=== PATIENT | male | born 1955 | race Two or more races ===

== ENCOUNTER 2019-08-23 11:16 | Inpatient (IN) | payer MEDICARE, MEDICAID ==
[~2019-08-23] VITALS: Ht 162.6 cm; Wt 78.2 kg
[2019-08-23] MEDS ORDERED: cloNIDine HCL 0.1 MG TAB PO ONE (12:15)
[2019-08-23 12:34] LABS: Basophils # (auto) 0.1 uL; Basophils % (auto) 1.1 % (0.0-2.0); Eosinophils # (auto) 0.5 uL; Hematocrit 43.7 % (41.0-53.0); Hemoglobin 14.8 g/dL (13.5-17.5); Lymphocytes # (auto) 2.9 uL; Lymphocytes % (auto) 31.3 % (10.0-50.0); Mean Corpuscular Hemoglobin 29.5 pg (28.0-32.0); Mean Corpuscular Hgb Conc. 33.9 g/dL (32.0-36.0); Monocytes # (auto) 0.6 uL; Monocytes % (auto) 6.3 % (0.0-12.0); Neutrophils # (auto) 5.1 uL; Neutrophils % (auto) 56.3 % (37.0-80.0); Platelet Count (auto) 368 10^3/uL (140-450); Red Blood Cells 5.02 10^6/uL (4.5-5.90); Red Cell Distribution Width 15.8 % (11.8-14.3); White Blood Cell 9.1 10^3/uL (4.4-10.8)
[2019-08-23 12:48] LABS: INR 0.96 (0.9-1.15); Partial Thromboplastin Time 27.2 sec (23.64-32.05)
[2019-08-23 12:51] LABS: Albumin 3.8 g/dL (3.4-5.0); Anion Gap 5 (5-15); Blood Urea Nitrogen 26 mg/dL (7-18); Carbon Dioxide 27 mmol/L (21-32); Chloride 108 mmol/L (98-107); Glucose 90 mg/dL (74-106); Potassium 4.1 mmol/L (3.5-5.1); Sodium 140 mmol/L (136-145)
[2019-08-23 12:56] LABS: Alanine Aminotransferase 26 U/L (16-61); Alkaline Phosphatase 78 U/L (45-117); Aspartate Aminotransferase 24 U/L (15-37); BUN/Creatinine Ratio 16.7; Bilirubin, Total 0.4 mg/dL (0.2-1.0); GFR African American 58 mL/min; GFR Non-African American 48 mL/min; Total Protein 8.1 g/dL (6.4-8.2)
[2019-08-23] MEDS ORDERED: DILTIAZEM HCL 25 MG/5 ML VIAL IV ONE (13:45)
[2019-08-23] MEDS ORDERED: NITROGLYCERIN 0.4 MG SL TAB SL PRN (15:00)
[2019-08-23] MEDS ORDERED: LACTULOSE 20Gm/30ML SOLN PO PRN (15:00)
[2019-08-23] MEDS ORDERED: PROMETHAZINE HCL 25 MG/ML 1ML IV PRN (15:00)
[2019-08-23] MEDS ORDERED: TEMAZEPAM 15 MG CAP PO PRN (15:00)
[2019-08-23] MEDS ORDERED: MORPHINE SULF INJ 2 MG/ML SYRINGE 1ML IV PRN (15:00)
[2019-08-23] MEDS ORDERED: hydrALAZINE HCL 20 MG/ML VL ONE (15:27)
--- NOTE | 2019-08-23 15:55 | NUR ---
Telemetry admit from ER ADILENE LINDER admitted to Telemetry unit after SBAR received. Patient oriented to KEVIN LANDAVERDE RN primary RN, unit, room, bed, and unit policies regarding patient care and visiting hours. Patient now on continuous telemetry monitoring, tele box #[id number]. Patient weighed by bedscale and encouraged to call if they need something. All questions and concerns addressed, patient verbalized understanding.
[2019-08-23 16:30] VITALS: BP 141/91
[2019-08-23] MEDS: traMADol HCL 50 MG TAB PO PRN (17:13)
--- NOTE | 2019-08-23 19:20 | NUR ---
Opening Shift Note Assumed care of patient, awake and alert. No S/S of distress/SOB or pain. Safety measures in place bed in lowest position, side rails x2 up, and call light within reach. Instructed on POC and to call for assist PRN, will continue to monitor for changes Q1hr and PRN.
--- NOTE | 2019-08-23 19:33 | NUR ---
Closing Shift Note Patient resting in bed, still complaining of pain. Report given. Will endorse care to the shift production associate RN.
[2019-08-23 20:30] LABS: Urine Bacteria NONE SEEN /hpf (None Seen); Urine Blood TRACE /uL (Negative); Urine Mucus FEW (None Seen); Urine Specific Gravity 1.011 (1.001-1.035); Urine WBC 6 /hpf (0 - 3)
[2019-08-23 20:48] LABS: Alcohol, Urine < 3.0 mg/dL (0-5); Amphetamine Screen, Urine POSITIVE (NEGATIVE); Barbiturate Scree,Urine NEGATIVE (NEGATIVE); Benzodiazephine Screen, Urine NEGATIVE (NEGATIVE); Cannabinoid Screen, Urine NEGATIVE (NEGATIVE); Cocaine Screen, Urine NEGATIVE (NEGATIVE); Opiate Scree,Urine NEGATIVE (NEGATIVE); Phencyclidine Screen, Urine NEGATIVE (NEGATIVE)
[2019-08-23] MEDS: ACETAMINOPHEN 500 MG TAB PO PRN (20:50)
[2019-08-23 22:00] VITALS: BP 163/97
[2019-08-23] MEDS: ATORVASTATIN 20 MG TAB PO SCH (22:25)
[2019-08-23] MEDS: LABETALOL HCL 5 MG/ML ML 20ML VIAL IV PRN (22:25)
[2019-08-24] MEDS: traMADol HCL 50 MG TAB PO PRN (04:39)
[2019-08-24 04:53] VITALS: BP 146/76
--- NOTE | 2019-08-24 07:00 | NUR ---
opening note patient in bed, comfortable, c/o headache, unlabored, even breathing. instructed patient to ask for assistance as needed. call light with in reach, bed in lowest position. poc explained to patient. patient verbalized understanding.
[2019-08-24 09:12] VITALS: BP 150/85
--- NOTE | 2019-08-24 10:00 | NUR ---
round PATIENT COMFORTABLE, FAMILY AT BED SIDE. MEDICATIONS GIVEN. TYLENOL GIVEN FOR HEADACHE
[2019-08-24] MEDS: ENOXAPARIN SOD 40 MG/0.4 ML SYRINGE SC SCH ×2 (10:27→10:38)
[2019-08-24] MEDS: PANTOPRAZOLE 40 MG TAB PO SCH ×2 (10:28→10:37)
[2019-08-24] MEDS: ASPirin 81 mg TAB PO SCH (10:37)
[2019-08-24] MEDS: ACETAMINOPHEN 500 MG TAB PO PRN ×2 (10:37→20:10)
[2019-08-24 12:59] VITALS: BP 160/84
--- NOTE | 2019-08-24 13:00 | NUR ---
BLOOD PRESSION BLOOD PRESSURE RECHECKED BLOOD PRESSURE, B/P 156/63, PATIENT IN BED, DENIES HEADACHE. PRN MEDICATION NOT GIVEN B/P<160SBP
--- NOTE | 2019-08-24 15:00 | NUR ---
DR JOSÉ MIGUEL VALDEZ AT BEDSIDE, EXPLAINED TO PATIENT AND FAMILY THE PLAN OF CARE. PT WILL BE DISCHARGED HOME. MD SENT PRESCRIPTIONS TO PHARMACY ELECTRONICALLY. PHARMACY VERIFIED WITH FAMILY.
[2019-08-24] MEDS ORDERED: PANT40T PO (15:36)
[2019-08-24] MEDS ORDERED: ACET500T42 PO (15:36)
[2019-08-24] MEDS ORDERED: ATOR20TA50 PO (15:36)
[2019-08-24] MEDS ORDERED: LACT10SO3 PO (15:36)
[2019-08-24] MEDS ORDERED: ASPI81CH43 PO (15:36)
[2019-08-24] MEDS ORDERED: NIFE60TA59 PO (15:36)
[2019-08-24] MEDS ORDERED: LEVE500T22 PO (15:36)
--- NOTE | 2019-08-24 16:20 | NUR ---
RE: elevated BP Notified Dr. Morgan of patient's elevated BP of 189/89 mmHG, HR SR 70 bpm. MD verbalized understanding. Orders received and read back to verify. Patient to be reassessed 2 hours after administration of medications.
[2019-08-24] MEDS ORDERED: NIFEdipine ER 30 MG TAB PO ONE (16:30)
[2019-08-24] MEDS ORDERED: cloNIDine HCL 0.1 MG TAB PO ONE (16:30)
[2019-08-24 17:00] VITALS: BP 189/89
--- NOTE | 2019-08-24 17:10 | NUR ---
PRN MEDICATION FOR B/P PATIENT WAS HELD FROM DISCHARGE D/T BLOOD PRESSURE OF 189/89, PRN MEDICATION PROCARDIA AND CLONIDINE GIVEN PER DR'S ORDER. WILL REASSESS IN TWO HOURS AND IF SBP <160 DBP <100, THEN PATIENT CAN BE SEND HOME SAFELY. PATIENT AND FAMILY UNDERSTAND POC AND ARE AT BED SIDE.
[2019-08-24] MEDS: LABETALOL HCL 5 MG/ML ML 20ML VIAL IV PRN (20:10)
--- NOTE | 2019-08-24 20:16 | NUR ---
PATIENT COMPLAINING OF HEADACHE. BP IS 166/97.
[2019-08-24] MEDS ORDERED: hydrALAZINE HCL 25 MG TAB PO ONE (20:45)
[2019-08-24 22:00] VITALS: BP 119/68
[2019-08-24] MEDS: ATORVASTATIN 20 MG TAB PO SCH (22:13)
[2019-08-25] MEDS: ACETAMINOPHEN 500 MG TAB PO PRN (03:13)
[2019-08-25 05:34] VITALS: BP 124/72
--- NOTE | 2019-08-25 07:30 | NUR ---
Opening Shift Note RECEIVED REPORT FROM NOC RN. Assumed care of patient, awake and alert. No S/S of distress/SOB or pain. BED IN LOWEST, LOCKED POSITION WITH SIDERAILS UP x2 AND CALL LIGHT WITHIN REACH. Instructed on POC and to call for assist PRN, will continue to monitor for changes Q1hr and PRN.
[2019-08-25 08:51] VITALS: BP 122/71
[2019-08-25] MEDS: ASPirin 81 mg TAB PO SCH (09:42)
[2019-08-25 11:34] VITALS: BP 122/71
[2019-08-25 13:03] VITALS: BP 143/81
== END 2019-08-25 13:04 | disposition home or self-care (01) | DRG 305 ==
LOC: ER 11:16 → TELE 11:17 → TELE-WESTW 15:55
PROVIDERS: ADMIT Internal Medicine; ATTEND Internal Medicine
DX: I16.0 Hypertensive urgency (principal); N17.9 Acute kidney failure, unspecified; G45.9 Transient cerebral ischemic attack, unspecified; I12.9 Hypertensive chronic kidney disease with stage 1 through stage 4 chronic kidney disease, or unspecified chronic kidney disease; F17.210 Nicotine dependence, cigarettes, uncomplicated; E78.5 Hyperlipidemia, unspecified; F15.10 Other stimulant abuse, uncomplicated; H93.12 Tinnitus, left ear; F12.10 Cannabis abuse, uncomplicated; N18.9 Chronic kidney disease, unspecified; E66.3 Overweight; Z82.49 Family history of ischemic heart disease and other diseases of the circulatory system; Z91.19 Patient's noncompliance with other medical treatment and regimen; Z68.29 Body mass index [BMI] 29.0-29.9, adult
CPT/HCPCS: 36415; 70450; 71045; 80053; 80307; 81001; 82550; 83735; 83880; 84484; 85025; 85610; 85652; 85730; 93005; 93306; 93886; 96374; G0378